=== PATIENT | male | born 1975 | race Asian ===

== ENCOUNTER 2018-07-19 03:30 | Inpatient (IN) | payer BC ==
[~2018-07-19] VITALS: Ht 170.2 cm; Wt 62.6 kg
[2018-07-19 05:18] LABS: CLARITY URINE CLEAR (CLEAR); COLOR URINE YELLOW (YELLOW); KETONES URINE TRACE (NEGATIVE); LEUKOCYTE ESTERASE URINE NEGATIVE (NEGATIVE); NITRITE URINE NEGATIVE (NEGATIVE); OCCULT BLOOD URINE 1+ (NEGATIVE); PROTEIN URINE NEGATIVE (NEGATIVE); UROBILINOGEN URINE 0.2 E.U./dL (0.2-1.0)
[2018-07-19] MEDS ORDERED: MAGNESIUM/ALUMINUM HYDROXIDE/SIMETHICONE 30ML UDC PO STA (06:26)
[2018-07-19 06:35] LABS: CHLORIDE 103 mEq/L (98-107)
[2018-07-19 06:36] LABS: BASOPHILS % 0.5 % (0.0-2.0); EOSINOPHILS % 1.1 % (0.0-5.0); HEMATOCRIT. 44.9 % (42.0-52.0); LYMPHOCYTES % 9.7 % (20.0-50.0); MEAN CORPUSCULAR HEMOGLOBIN 30.4 pg (28.0-32.0); MEAN CORPUSCULAR VOLUME 90.9 fL (80.0-94.0); MEAN PLATELET VOLUME 7.6 fl (7.4-10.4); MONOCYTES % 8.4 % (2.0-8.0); NEUTROPHILS % 80.3 % (40.0-76.0); PLATELET 221 x1000/uL (130-400); RED BLOOD CELL COUNT 4.94 mill/uL (4.7-6.1); RED CELL DISTRIBUTION WIDTH 13.2 % (11.6-14.6)
[2018-07-19] MEDS ORDERED: PIPERACILLIN/TAZ 3.375G PREMIX 50 ML IV ONE (07:30)
[2018-07-19] MEDS ORDERED: BUPIVACAINE HCL 0.5% (5MG/ML) 50ML ONE (09:08)
[2018-07-19] MEDS ORDERED: SKIN ADHESIVE 0.7 GM EA TOP ONE (09:08)
[2018-07-19] MEDS ORDERED: HYDROCODONE/ACETAMINOPHEN 5/325MG TABLET PO PRN ×4 (09:30→11:15)
[2018-07-19] MEDS ORDERED: ONDANSETRON HCL 4MG/2ML INJ IV PRN ×3 (09:30→12:45)
[2018-07-19] MEDS ORDERED: ACETAMINOPHEN 650MG SUPP PR PRN ×2 (09:30→11:15)
[2018-07-19] MEDS ORDERED: GLYCOPYRROLATE 0.2 MG/ML 2ML VIAL ONE (11:18)
[2018-07-19] MEDS ORDERED: EPHEDRINE SULFATE 50MG/ML VIAL ONE (11:18)
[2018-07-19] MEDS ORDERED: SODIUM CHLORIDE 0.9% 10ML VIAL ONE (11:18)
[2018-07-19] MEDS ORDERED: METOCLOPRAMIDE HCL 10MG/2ML VIAL ONE (11:18)
[2018-07-19] MEDS ORDERED: MIDAZOLAM HCL 2 MG/2 ML VIAL ONE (11:18)
[2018-07-19] MEDS ORDERED: ROCURONIUM BROMIDE 10MG/ML VIAL 5ML IV ONE (11:18)
[2018-07-19] MEDS ORDERED: LIDOCAINE HCL/PF 1% 10 MG/ML 5ML VIAL ONE (11:18)
[2018-07-19] MEDS ORDERED: CEFAZOLIN SODIUM 1000MG/VIAL ONE (11:18)
[2018-07-19] MEDS ORDERED: NEOSTIGMINE METHYLSULFATE 1MG/ML 10 ML VIAL ONE (11:18)
[2018-07-19] MEDS ORDERED: ONDANSETRON HCL 4MG/2ML INJ ONE ×2 (11:18→12:13)
[2018-07-19] MEDS ORDERED: PHENYLEPHRINE HCL 10 MG/ML 1ML (IV VIAL) IV ONE (11:18)
[2018-07-19] MEDS ORDERED: FENTANYL CITRATE/PF 50MCG/ML 2ML VIAL ONE ×2 (11:18→11:40)
[2018-07-19] MEDS ORDERED: PROPOFOL 200MG/20ML VIAL IV ONE (11:18)
[2018-07-19] MEDS ORDERED: SUCCINYLCHOLINE CHLORIDE 200MG/10ML IV ONE (11:18)
[2018-07-19] MEDS ORDERED: MORPHINE SULFATE 4 MG/ML CPJ (NOT FOR IM USE) IV ONE (12:13)
[2018-07-19] MEDS ORDERED: HYDROMORPHONE HCL/PF 2MG/ML CPJ ONE (12:13)
[2018-07-19] MEDS ORDERED: MEPERIDINE HCL/PF 25MG/ML CPJ ONE (12:13)
[2018-07-19] MEDS ORDERED: SODIUM CHLORIDE 0.9% 1,000 ML IV ONE (12:34)
[2018-07-19] MEDS ORDERED: MORPHINE SULFATE 4 MG/ML CPJ (NOT FOR IM USE) IV PRN ×2 (12:45→13:00)
[2018-07-19] MEDS ORDERED: MEPERIDINE HCL/PF 25MG/ML CPJ IV PRN (12:45)
[2018-07-19] MEDS: MEPERIDINE HCL/PF 25MG/ML CPJ IV PRN ×2 (12:55→13:13)
[2018-07-19] MEDS: HYDROMORPHONE HCL/PF 2MG/ML CPJ IV PRN ×5 (13:20→14:23)
[2018-07-19 15:19] LABS: CHLORIDE 110 mEq/L (98-107)
[2018-07-19 15:25] LABS: HEMOGLOBIN 15.3 g/dL (14.0-18.0)
[2018-07-19 15:41] LABS: BG BASE EXCESS -5.7 mmol/L (-2.0-2.0); BG CARBOXYHEMOGLOBIN 0.5 % (0.5-1.5); BG DEOXYHEMOGLOBIN 2.9 % (0.0-5.0); BG FRACTION INSPIRED OXYGEN 28; BG HCO3 ACT 19.7 mmol/L (22.0-26.0); BG METHEMOGLOBIN 0.5 % (0.0-1.5); BG OXYGEN SATURATION 97.1 % (92.0-98.5); BG OXYHEMOGLOBIN 96.1 % (94.0-97.0); BG PCO2 38.3 mmHg (35.0-45.0); BG PH 7.329 (7.350-7.450); BG PO2 98.8 mmHg (75.0-100.0); BG SAMPLE SITE RIGHT BRACHIAL; BG TOTAL HEMOGLOBIN 14.7 g/dL (12.0-18.0); BG VENT MODE NASAL CANNULA
[2018-07-19] MEDS ORDERED: SODIUM BICARBONATE 8.4% 1 MEQ/ML 50ML SYR IV NR ×2 (15:51→20:00)
[2018-07-19] MEDS ORDERED: LORAZEPAM 2MG/ML CPJ IV NR (16:00)
[2018-07-19] MEDS ORDERED: SODIUM BICARBONATE 8.4% MEQ/ML 50ML VIAL IV ONE (16:14)
[2018-07-19] MEDS ORDERED: DEXT 5%/0.45% NACL KCL 20MEQ/L 1,000 ML IV SCH (18:00)
[2018-07-19] MEDS ORDERED: PIPERACILLIN/TAZ 3.375G PREMIX 50 ML IV SCH ×2 (18:00→20:00)
[2018-07-19] MEDS ORDERED: PIPERACILLIN/TAZOBACTAM 3.375GM/50ML PREMIX IV SCH (18:00)
[2018-07-19 20:00] VITALS: BP_SYST 125; BP_SYST 127; BP_DIAS 51; BP_DIAS 73
[2018-07-19] MEDS: MORPHINE SULFATE 4 MG/ML CPJ (NOT FOR IM USE) IV PRN (21:49)
[2018-07-20] VITALS: BP 119/72
[2018-07-20] MEDS ORDERED: SIME125C PO (00:34)
[2018-07-20] MEDS ORDERED: PANT20TA3 PO (00:34)
[2018-07-20] MEDS: PIPERACILLIN/TAZ 3.375G PREMIX 50 ML IV SCH ×4 (03:31→23:49)
[2018-07-20] MEDS: MORPHINE SULFATE 4 MG/ML CPJ (NOT FOR IM USE) IV PRN ×3 (03:31→21:08)
[2018-07-20 04:00] VITALS: BP 124/75
[2018-07-20 08:00] VITALS: BP 118/71
[2018-07-20 11:07] LABS: BASOPHILS % 0.4 % (0.0-2.0); HEMATOCRIT. 41.5 % (42.0-52.0); HEMOGLOBIN. 14.1 g/dL (14.0-18.0); LYMPHOCYTES % 7.3 % (20.0-50.0); MEAN CORPUSCULAR HEMOGLOBIN 30.8 pg (28.0-32.0); MEAN CORPUSCULAR VOLUME 90.7 fL (80.0-94.0); MEAN PLATELET VOLUME 7.5 fl (7.4-10.4); MONOCYTES % 8.8 % (2.0-8.0); NEUTROPHILS % 83.5 % (40.0-76.0); PLATELET 200 x1000/uL (130-400); RED BLOOD CELL COUNT 4.58 mill/uL (4.7-6.1)
[2018-07-20 11:19] LABS: CHLORIDE 102 mEq/L (98-107)
[2018-07-20 12:00] VITALS: BP 118/65
[2018-07-20] MEDS: DEXT 5%/0.45% NACL KCL 20MEQ/L 1,000 ML IV SCH (14:50)
[2018-07-20 15:56] VITALS: BP 116/69
[2018-07-20 20:32] VITALS: BP 122/70
[2018-07-21 00:41] VITALS: BP 103/53
[2018-07-21] MEDS: SIMETHICONE 80MG TABLET CHEW PO PRN ×2 (01:46→11:01)
[2018-07-21] MEDS: DEXT 5%/0.45% NACL KCL 20MEQ/L 1,000 ML IV SCH ×2 (02:41→08:13)
[2018-07-21 04:00] VITALS: BP 105/62
[2018-07-21] MEDS: PIPERACILLIN/TAZ 3.375G PREMIX 50 ML IV SCH ×3 (06:05→17:47)
[2018-07-21 06:49] LABS: CHLORIDE 100 mEq/L (98-107)
[2018-07-21 06:51] LABS: BASOPHILS % 0.3 % (0.0-2.0); EOSINOPHILS % 0.3 % (0.0-5.0); HEMATOCRIT. 42.6 % (42.0-52.0); HEMOGLOBIN. 14.2 g/dL (14.0-18.0); LYMPHOCYTES % 7.2 % (20.0-50.0); MEAN CORPUSCULAR HEMOGLOBIN 30.2 pg (28.0-32.0); MEAN CORPUSCULAR VOLUME 90.8 fL (80.0-94.0); MEAN PLATELET VOLUME 7.3 fl (7.4-10.4); NEUTROPHILS % 83.2 % (40.0-76.0); PLATELET 205 x1000/uL (130-400); RED BLOOD CELL COUNT 4.69 mill/uL (4.7-6.1); RED CELL DISTRIBUTION WIDTH 12.8 % (11.6-14.6)
[2018-07-21 08:00] VITALS: BP 110/63
[2018-07-21] MEDS: MORPHINE SULFATE 4 MG/ML CPJ (NOT FOR IM USE) IV PRN (08:13)
[2018-07-21] MEDS ORDERED: MAGNESIUM/ALUMINUM HYDROXIDE/SIMETHICONE 30ML UDC PO PRN (11:00)
[2018-07-21] MEDS: PANTOPRAZOLE SODIUM 40 MG/VIAL IV SCH (11:52)
[2018-07-21 12:00] VITALS: BP 110/70
[2018-07-21 16:00] VITALS: BP 112/68
[2018-07-21] MEDS ORDERED: LORAZEPAM 2MG/ML CPJ IM PRN (16:30)
[2018-07-21] MEDS ORDERED: LORAZEPAM 2MG/ML CPJ IV PRN ×2 (17:00→22:30)
[2018-07-21 20:00] VITALS: BP 110/67
[2018-07-21] MEDS ORDERED: ONDANSETRON HCL 4MG/2ML INJ IV PRN (22:00)
[2018-07-21] MEDS ORDERED: KETOROLAC 30MG/ML VIAL IV PRN (22:00)
[2018-07-22] VITALS: BP 104/62
[2018-07-22] MEDS: PIPERACILLIN/TAZ 3.375G PREMIX 50 ML IV SCH ×4 (00:46→17:42)
[2018-07-22 04:00] VITALS: BP 108/65
[2018-07-22] MEDS: DEXT 5%/0.45% NACL KCL 20MEQ/L 1,000 ML IV SCH ×2 (05:21→17:44)
[2018-07-22 06:29] LABS: HEMATOCRIT. 43.2 % (42.0-52.0); HEMOGLOBIN. 14.6 g/dL (14.0-18.0); MEAN CORPUSCULAR HEMOGLOBIN 30.4 pg (28.0-32.0); MEAN CORPUSCULAR VOLUME 90.2 fL (80.0-94.0); MEAN PLATELET VOLUME 7.3 fl (7.4-10.4); PLATELET 239 x1000/uL (130-400); RED BLOOD CELL COUNT 4.79 mill/uL (4.7-6.1); RED CELL DISTRIBUTION WIDTH 12.9 % (11.6-14.6)
[2018-07-22 08:00] VITALS: BP 102/67
[2018-07-22 08:03] LABS: CHLORIDE 99 mEq/L (98-107)
[2018-07-22] MEDS: PANTOPRAZOLE SODIUM 40 MG/VIAL IV SCH (09:49)
[2018-07-22 11:19] LABS: PLATELET ESTIMATE NORMAL
[2018-07-22 12:00] VITALS: BP 104/66
[2018-07-22 16:00] VITALS: BP 114/64
[2018-07-22 20:00] VITALS: BP 112/67
[2018-07-23] VITALS: BP 114/67
[2018-07-23] MEDS: DEXT 5%/0.45% NACL KCL 20MEQ/L 1,000 ML IV SCH ×3 (00:05→20:05)
[2018-07-23] MEDS: PIPERACILLIN/TAZ 3.375G PREMIX 50 ML IV SCH ×4 (00:05→17:22)
[2018-07-23 04:00] VITALS: BP 106/64
[2018-07-23 07:34] LABS: BASOPHILS % 0.5 % (0.0-2.0); EOSINOPHILS % 1.8 % (0.0-5.0); HEMATOCRIT. 38.4 % (42.0-52.0); HEMOGLOBIN. 13.2 g/dL (14.0-18.0); LYMPHOCYTES % 7.7 % (20.0-50.0); MEAN CORPUSCULAR HEMOGLOBIN 31.1 pg (28.0-32.0); MEAN CORPUSCULAR VOLUME 90.3 fL (80.0-94.0); MEAN PLATELET VOLUME 7.3 fl (7.4-10.4); MONOCYTES % 10.9 % (2.0-8.0); NEUTROPHILS % 79.1 % (40.0-76.0); PLATELET 235 x1000/uL (130-400); RED BLOOD CELL COUNT 4.26 mill/uL (4.7-6.1); RED CELL DISTRIBUTION WIDTH 12.7 % (11.6-14.6)
[2018-07-23 07:48] LABS: CHLORIDE 104 mEq/L (98-107)
[2018-07-23 08:00] VITALS: BP 103/65
[2018-07-23] MEDS: FAMOTIDINE 20MG/2ML VIAL IV SCH ×2 (10:07→20:05)
[2018-07-23 12:00] VITALS: BP 108/67
[2018-07-23 16:00] VITALS: BP 114/71
[2018-07-23 20:00] VITALS: BP 107/66
[2018-07-24] VITALS: BP 113/72
[2018-07-24] MEDS: PIPERACILLIN/TAZ 3.375G PREMIX 50 ML IV SCH ×4 (00:09→18:33)
[2018-07-24 04:00] VITALS: BP 118/68
[2018-07-24] MEDS: DEXT 5%/0.45% NACL KCL 20MEQ/L 1,000 ML IV SCH ×2 (06:30→18:33)
[2018-07-24 08:00] VITALS: BP 104/60
[2018-07-24] MEDS: FAMOTIDINE 20MG/2ML VIAL IV SCH ×2 (08:44→21:14)
[2018-07-24 12:00] VITALS: BP 111/72
[2018-07-24 16:00] VITALS: BP 110/70
[2018-07-24 20:00] VITALS: BP 108/72
[2018-07-25] VITALS: BP 110/70
[2018-07-25] MEDS: PIPERACILLIN/TAZ 3.375G PREMIX 50 ML IV SCH ×4 (00:21→17:43)
[2018-07-25] MEDS: DEXT 5%/0.45% NACL KCL 20MEQ/L 1,000 ML IV SCH ×2 (03:44→15:42)
[2018-07-25 04:00] VITALS: BP 105/61
[2018-07-25 08:00] VITALS: BP 99/57
[2018-07-25] MEDS: FAMOTIDINE 20MG/2ML VIAL IV SCH (09:50)
[2018-07-25 12:00] VITALS: BP 106/71
[2018-07-25 16:00] VITALS: BP 116/64
== END 2018-07-25 20:30 | disposition home or self-care (01) | DRG 339 ==
LOC: ER 03:30 → ORIP 08:18 → ER 11:01 → 6EST 16:55
PROVIDERS: ADMIT Internal Medicine; ATTEND Internal Medicine
PROC: 0DTJ0ZZ Resection of Appendix, Open Approach (ICD-10-PCS; principal; 2018-07-19)
PROC: 0DJD4ZZ Inspection of Lower Intestinal Tract, Percutaneous Endoscopic Approach (ICD-10-PCS; 2018-07-19)
DX: K35.32 Acute appendicitis with perforation, localized peritonitis, and gangrene, without abscess (principal); K56.7 Ileus, unspecified; J45.909 Unspecified asthma, uncomplicated; N20.0 Calculus of kidney; Z53.31 Laparoscopic surgical procedure converted to open procedure
CPT/HCPCS: 36415; 36600; 74018; 74176; 80048; 82375; 82805; 83036; 85014; 85018; 86850; 86900; 88304; 96365; 96366; 96375; 99285; A6261; C1893; C9113; J0330; J0690; J1170; J2060; J2175; J2250; J2270; J2370; J2405; J2543; J2704; J2710; J2765; J3010; J3490; J7030